=== PATIENT | female | born 1985 | race Caucasian/White ===

== ENCOUNTER 2017-06-18 22:10 | Emergency (ER) | payer OTHER ==
--- NOTE | ~2017-06-18 | CR142 ---
[facility] A Service of [facility] & [facility] RADIOLOGY TEXT RESULTS PATIENT: SHELLEY ULLOA LOCATION: CFTX : 89 UNIT #: [id number] AGE: [address]: Shannon Ward APRN SEX: F ORDER DR: [id number] [facility] [address] [place], [place] [address] [id number] MR#: [id number] Acc #: [id number] NAME: SHELLEY ULLOA. : 1985 SEX: F STUDY DATE/TIME: 06/18/2017 22:24 UNIT: [facility] ROOM: STUDY DESCRIPTION: CR Hand Min 3 Views Rt Attending Physician: Shannon Ward A.P.R.N. Ordering Physician: Shannon Ward A.P.R.N. Primary Care Physician: Keegan Rankin M.D. MEDICAL IMAGING REPORT This report is preliminary unless electronic signature is present EXAM Right hand 3 views HISTORY Hand pain after laceration today on glass. FINDINGS AP, lateral, and oblique projections of the hand show good mineralization with normal carpal, metacarpal, and phalangeal anatomy without indication of fracture, dislocation, or soft tissue radiopaque foreign body. IMPRESSION Normal hand. Dictated by... Thomas Luther M.D. THIS IS AN ELECTRONICALLY VERIFIED REPORT Thomas Luther M.D. at 06/19/2017 6:27 PM DFL/therese TD: 06/19/2017 04:19 JOB #: [id number] MEDICAL IMAGING REPORT Page 1 of 1 COPY
[~2017-06-18 22:10] MED LIST: BIRTH CONTROL PILL PO; FLEXERIL10 MG PO; KETOPROFEN PO; MOTRIN600 MG PO; PARAGARD T
== END 2017-06-18 23:53 | disposition home or self-care (01) ==
LOC: CED 22:10 → CFTX 22:10
DX: S61.411A Laceration without foreign body of right hand, initial encounter (principal); R56.9 Unspecified convulsions; Z88.0 Allergy status to penicillin; F17.210 Nicotine dependence, cigarettes, uncomplicated; W25.XXXA Contact with sharp glass, initial encounter; Y92.009 Unspecified place in unspecified non-institutional (private) residence as the place of occurrence of the external cause
CPT/HCPCS: 12002; 73130; 99283